=== PATIENT | female | born 1990 | race Caucasian/White ===

== ENCOUNTER 2018-07-06 16:45 | Observation (INO) ==
[2018-07-06] MEDS ORDERED: 0.9 % Sodium Chloride 1,000 ML IVC ONE (17:16)
[2018-07-06] MEDS ORDERED: Sulfamethoxazole/Trimeth DS 1 EACH TABLET PO ONE (17:18)
--- NOTE | 2018-07-06 17:30 | Emergency Department Note ---
Disposition Clinical Impression: Abscess of skin or subcutaneous tissue Qualifiers: Site of cutaneous abscess: trunk Site of cutaneous abscess of trunk: chest wall Qualified Code(s): L02.213 - Cutaneous abscess of chest wall Disposition: Admitted As Inpatient Time of Disposition: 19:37 General Adult HPI - General Chief complaint: ED Skin/Abscess/Foreign Body Stated complaint: Left lump on breast Time Seen by Provider: 07/06/18 17:00 Source: patient Limitations: no limitations Nursing Notes Reviewed: Yes Vital Signs Reviewed: Yes - History of Present Illness HPI Narrative: Male patient presenting to the respiratory a history of lump to her left breast. She noticed that there was pain for a week however it started getting red over the past 3 days. She has subjective fevers. She is mildly tachycardic while coming in. She does have a history of diabetes. She has tried at home Augmentin that she had from previous infection and her has tried to place a needle in this to express infection however this was unsuccessful. Patient is not currently breast-feeding. This is not localized with her areola. It is not currently draining. Pain Scale: 6 - Related Data Allergies Allergy/AdvReac Type Severity Reaction Status Date / Time No Known Allergies Allergy Verified 07/06/18 16:49 All systems ED: reviewed and negative except as stated. Review of Systems: As Per HPI Constitutional: Reports: chills. Denies: fever ENT ED: Denies: congestion Cardiovascular: Denies: chest pain, palpitations, syncope Respiratory: Denies: cough, dyspnea Gastrointestinal: Denies: abdominal pain, nausea, vomiting, diarrhea Integumentary: Reports: lesions (To the left breast.) Past Medical History - Past Medical History Attestation: Yes The following information was validated with the patient. Source: patient Medical history: Reports: diabetes, hyperlipidemia Psychiatric history: Reports: no psych history - Social History Smoking Status: Current every day smoker Smokeless Tobacco Status: No Alcohol use: Reports: occasionally Drug use: Reports: none Physical Exam - General Limitations: no limitations General appearance: alert, in no apparent distress - Head Head exam: atraumatic, normocephalic, normal inspection - Eye Eye exam: Present: normal appearance, PERRL, EOMI - ENT ENT exam: normal exam, normal oropharynx, mucous membranes moist - Neck Neck exam: Present: normal inspection, full ROM, trachea midline - Chest Chest inspection: Present: abscess (To the left breast. Approximately 4:00 from her areola.) - Respiratory Respiratory exam: Present: normal lung sounds bilaterally. Absent: respiratory distress, accessory muscle use - Cardiovascular Cardiovascular exam: Present: regular rate, normal rhythm, normal heart sounds - Abdominal Exam Abdominal exam: Present: soft, Non-Tender. Absent: tenderness, distention, guarding, rebound, rigidity, organomegaly, Hughes's sign, Rovsing's sign, tenderness at McBurney's Point - Extremities Exam Extremities exam: Present: normal inspection, full ROM. Absent: tenderness, pedal edema - Neurological Exam Neurological exam: Present: alert, oriented X3 - Psychiatric Psychiatric exam: Present: normal affect, normal mood - Skin Skin exam: Present: warm, dry, normal color Course Course Narrative: Female patient with a abscess to the left breast. States is been getting worse over the past 3 days. She did notice pain in this area approximately week ago. Reports subjective fevers. Has tried Augmentin at home as well as draining it by her . The antibiotic she just had extra laying around. She denies any other medical history other than diabetes. She is mentating appropriately nonfebrile while she is here. Breast is exquisitely tender. Area of erythema and palpable fluctuance. Warm to touch. Her white count is mildly elevated at 11. We did place patient on antibiotics for she is here. I discussed this patient with our on-call surgeon Dr. Bernard who states that she we will admit her to her service. We did place patient on Zosyn at her request. And get a CT of patient's chest at her request as well. We did a bedside ultrasound which showed a large abscess to the left breast. We will admit patient to the hospital this time. Of note patient has had a have cysts lanced in her right axilla region before. - Consultations Consultation #1: I spoke with Dr Bernard. She is agreeable to admit Pt to the hospital to her service. She states that she would like a chest ct and the Pt placed on zosyn. Time: 18:48 Vital Signs Temperature 98.0 F 07/06/18 16:49 Pulse Rate 96 07/06/18 16:49 Respiratory Rate 14 07/06/18 16:49 Blood Pressure 144/92 07/06/18 16:49 O2 Sat by Pulse Oximetry 99 07/06/18 16:49 Temperature 98.0 F 07/06/18 16:49 Pulse Rate 89 07/06/18 18:13 Respiratory Rate 16 07/06/18 18:13 Blood Pressure 120/95 07/06/18 18:13 O2 Sat by Pulse Oximetry 100 07/06/18 18:14 Oxygen Delivery Oxygen Delivery Room Air Procedures - Ultrasound-Other Narrative: Bedside ultrasound performed by myself of the left breast showed a large hypodense area consistent with abscess formation. This does not appear similar to other breast tissue. Medical Decision Making - Medical Records Medical records reviewed: Yes I reviewed the patient's medical records. - Lab Data Lab results reviewed: Yes I reviewed the patient's lab results. Result diagrams: 07/06/18 17:36 07/06/18 17:36 Lab Results 07/06/18 07/06/18 07/06/18 Range/Units 17:36 17:36 17:36 WBC 12.0 H (4.3-11.1) K/mcL RBC 5.00 H (3.82-4.97) M/mcL Hgb 13.7 (11.5-15.4) g/dL Hct 42.6 (35.3-44.9) % MCV 85.2 (83.0-100.0) fL MCH 27.4 L (28.0-33.3) pg MCHC 32.2 (31.6-35.5) g/dL RDW 14.1 (11.5-14.5) % Plt Count 244 (140-400) K/mcL MPV 10.6 (9.4-12.4) fL Immature Gran % 1.4 (0-4) % Seg Neutrophils % 64.3 % Lymphocytes % 25.3 % Monocytes % 5.7 % Eosinophils % 2.5 % Basophils % 0.8 % Neutrophils # 7.7 (1.6-8.9) K/mcL Lymphocytes # 3.0 (0.6-4.6) K/mcL Monocytes # 0.7 (0.0-1.3) K/mcL Eosinophils # 0.3 (0.0-0.6) K/mcL Basophils # 0.1 (0.0-0.2) K/mcL Immature Plt Fraction 5.2 (1.1-6.1) % PT 10.7 (9.4-12.1) Seconds INR 1.0 APTT 28.2 (26.0-36.0) Seconds Sodium 134 L (136-145) mEq/L Potassium 4.1 (3.5-5.1) mEq/L Chloride 105 (98-107) mEq/L Carbon Dioxide 21 L (23-29) mEq/L BUN 11 (6-20) mg/dL Creatinine 0.81 (0.60-1.20) mg/dL Est GFR ( Amer) > 60 (> 60) Est GFR (Non-Af Amer) > 60 (> 60) BUN/Creatinine Ratio 14 (6-26) Glucose 181 H (70-105) mg/dL Calculated Osmolality 282 (280-300) Lactic Acid (0.5-2.2) mmol/L Calcium 9.4 (8.6-10.3) mg/dL Phosphorus 3.3 (2.7-4.5) mg/dL Magnesium 2.1 (1.6-2.6) mg/dL Total Bilirubin 0.4 (0.3-1.0) mg/dL Direct Bilirubin 0.1 (0.0-0.2) mg/dL Indirect Bilirubin 0.3 (0.0-1.2) mg/dL AST 13 (13-39) Units/L ALT 14 (7-52) Units/L Alkaline Phosphatase 66 (34-104) Units/L Troponin I < 0.03 (< 0.04) ng/mL Serum Total Protein 7.6 (6.4-8.9) g/dL Albumin 4.2 (3.5-5.7) g/dL Globulin 3.4 (2.4-3.5) g/dL Albumin/Globulin Ratio 1.2 (1.1-2.2) Urine Color (Yellow) Urine Clarity (Clear) Urine pH (5.0-8.0) pH Units Ur Specific Brave (1.010-1.025) Urine Protein (Neg-Trace) mg/dL Urine Glucose (UA) (Normal) mg/dL Urine Ketones (Negative) mg/dL Urine Blood (Negative) Urine Nitrite (Negative) Urine Bilirubin (Negative) Urine Urobilinogen (Normal) mg/dL Ur Leukocyte Esterase (Negative) Urine Microscopic RBC (0-3) per hpf Urine Microscopic WBC (0-3) per hpf Ur Squamous Epith Cells (None-Few) per lpf Urine Bacteria (None-Few) per hpf Hyaline Casts (None-Few) per lpf Urine Yeast (None Seen) per hpf Ur Culture Indicated? (NO) 07/06/18 07/06/18 Range/Units 17:36 17:55 WBC (4.3-11.1) K/mcL RBC (3.82-4.97) M/mcL Hgb (11.5-15.4) g/dL Hct (35.3-44.9) % MCV (83.0-100.0) fL MCH (28.0-33.3) pg MCHC (31.6-35.5) g/dL RDW (11.5-14.5) % Plt Count (140-400) K/mcL MPV (9.4-12.4) fL Immature Gran % (0-4) % Seg Neutrophils % % Lymphocytes % % Monocytes % % Eosinophils % % Basophils % % Neutrophils # (1.6-8.9) K/mcL Lymphocytes # (0.6-4.6) K/mcL Monocytes # (0.0-1.3) K/mcL Eosinophils # (0.0-0.6) K/mcL Basophils # (0.0-0.2) K/mcL Immature Plt Fraction (1.1-6.1) % PT (9.4-12.1) Seconds INR APTT (26.0-36.0) Seconds Sodium (136-145) mEq/L Potassium (3.5-5.1) mEq/L Chloride (98-107) mEq/L Carbon Dioxide (23-29) mEq/L BUN (6-20) mg/dL Creatinine (0.60-1.20) mg/dL Est GFR ( Amer) (> 60) Est GFR (Non-Af Amer) (> 60) BUN/Creatinine Ratio (6-26) Glucose (70-105) mg/dL Calculated Osmolality (280-300) Lactic Acid 1.1 (0.5-2.2) mmol/L Calcium (8.6-10.3) mg/dL Phosphorus (2.7-4.5) mg/dL Magnesium (1.6-2.6) mg/dL Total Bilirubin (0.3-1.0) mg/dL Direct Bilirubin (0.0-0.2) mg/dL Indirect Bilirubin (0.0-1.2) mg/dL AST (13-39) Units/L ALT (7-52) Units/L Alkaline Phosphatase (34-104) Units/L Troponin I (< 0.04) ng/mL Serum Total Protein (6.4-8.9) g/dL Albumin (3.5-5.7) g/dL Globulin (2.4-3.5) g/dL Albumin/Globulin Ratio (1.1-2.2) Urine Color Yellow (Yellow) Urine Clarity Clear (Clear) Urine pH 5.5 (5.0-8.0) pH Units Ur Specific Brave 1.025 (1.010-1.025) Urine Protein Negative (Neg-Trace) mg/dL Urine Glucose (UA) >=1000 H (Normal) mg/dL Urine Ketones Negative (Negative) mg/dL Urine Blood Negative (Negative) Urine Nitrite Negative (Negative) Urine Bilirubin Negative (Negative) Urine Urobilinogen Normal (Normal) mg/dL Ur Leukocyte Esterase Small H (Negative) Urine Microscopic RBC 0-3 (0-3) per hpf Urine Microscopic WBC 15-30 H (0-3) per hpf Ur Squamous Epith Cells Many H (None-Few) per lpf Urine Bacteria None Seen (None-Few) per hpf Hyaline Casts None Seen (None-Few) per lpf Urine Yeast Few H (None Seen) per hpf Ur Culture Indicated? NO. A (NO) - Radiology Data Radiology results reviewed: Yes I reviewed the patient's radiology results. Chest CT 07/06/18 18:44 IMPRESSION: Thickening of the skin in the left breast inferior and lateral to the nipple. No discrete fluid collection is seen in the breast parenchyma. Ultrasound is recommended for complete assessment. The possibility of a sebaceous cyst is raised. Scattered less than 5 mm lung nodules. Given the patient's age these are benign and warrant no additional follow-up. No history of a primary malignancy was provided. D/ / 07/06/2018 19:23:03 Ronald Horne MD [facility] Interpreting Provider: Ronald Horne MD Attestation Statement - Attestation Attestation: Resident Attestation: I examined this patient and my medical decision making was reviewed with the Resident Physician. I agree with the documented findings, disposition and treatment plan as described except to the extent set forth below. We independently had [id number] contact with the patient. Patient presenting for concern for breast cellulitis and abscess. Patient tried initial drainage at home with . Patient is been trying to express fluid patient has had worsening erythema. Worsening pain. Bedside ultrasound concerning for abscess. Resident physician discussed with surgeon. I was present for bedside ultrasound. Patient admitted for further treatment. Lateral left breast with significant erythema and underlying fluctuance.
[2018-07-06 17:57] LABS: Basophils # 0.1 K/mcL (0.0-0.2); Basophils % 0.8 %; Eosinophils # 0.3 K/mcL (0.0-0.6); Eosinophils % 2.5 %; Hematocrit 42.6 % (35.3-44.9); Hemoglobin 13.7 g/dL (11.5-15.4); Immature Granulocytes % 1.4 % (0-4); Immature Platelets 5.2 % (1.1-6.1); Lymphocytes % 25.3 %; Mean Corpuscular HGB Conc 32.2 g/dL (31.6-35.5); Mean Corpuscular Hemoglobin 27.4 pg (28.0-33.3); Mean Corpuscular Volume 85.2 fL (83.0-100.0); Mean Platelet Volume 10.6 fL (9.4-12.4); Monocytes # 0.7 K/mcL (0.0-1.3); Monocytes % 5.7 %; Neutrophils # 7.7 K/mcL (1.6-8.9); Platelet Count 244 K/mcL (140-400); Red Cell Distribution Width 14.1 % (11.5-14.5); Segmented Neutrophils % 64.3 %
[2018-07-06 17:59] LABS: Prothrombin Time 10.7 Seconds (9.4-12.1)
[2018-07-06 18:01] LABS: Activated Partial Thrombo Time 28.2 Seconds (26.0-36.0)
[2018-07-06 18:04] LABS: Bilirubin,Urine Negative (Negative); Blood,Urine Negative (Negative); Clarity,Urine Clear (Clear); Color,Urine Yellow (Yellow); Glucose,Urine (UA) >=1000 mg/dL (Normal); Ketones,Urine Negative (Negative); Leukocyte Esterase,Urine Small (Negative); Nitrite,Urine Negative (Negative); PH,Urine 5.5 pH Units (5.0-8.0); Protein,Urine Negative (Neg-Trace); Specific Gravity,Urine 1.025 (1.010-1.025); Urobilinogen,Urine Normal (Normal)
[2018-07-06] MEDS ORDERED: *HR* OxyCODONE/APAP 5/325 TABLET PO ONE (18:05)
[2018-07-06 18:06] LABS: Bacteria,Urine None Seen per hpf (None-Few); Hyaline Casts,Urine None Seen per lpf (None-Few); RBC,Urine 0-3 per hpf (0-3); Squamous Epithelial Cell,Urine Many per lpf (None-Few); WBC,Urine 15-30 per hpf (0-3)
[2018-07-06 18:13] LABS: Alanine Aminotransferase 14 Units/L (7-52); Albumin 4.2 g/dL (3.5-5.7); Albumin/Globulin Ratio 1.2 (1.1-2.2); Alkaline Phosphatase 66 Units/L (34-104); Aspartate Amino Transferase 13 Units/L (13-39); BUN/Creatinine Ratio 14 (6-26); Bilirubin,Direct 0.1 mg/dL (0.0-0.2); Bilirubin,Indirect 0.3 mg/dL (0.0-1.2); Bilirubin,Total 0.4 mg/dL (0.3-1.0); Blood Urea Nitrogen 11 mg/dL (6-20); Calcium 9.4 mg/dL (8.6-10.3); Carbon Dioxide 21 mEq/L (23-29); Chloride 105 mEq/L (98-107); Globulin 3.4 g/dL (2.4-3.5); Glucose 181 mg/dL (70-105); Magnesium 2.1 mg/dL (1.6-2.6); Osmolality,Calculated 282 (280-300); Phosphorous 3.3 mg/dL (2.7-4.5); Potassium 4.1 mEq/L (3.5-5.1); Sodium 134 mEq/L (136-145); Total Protein 7.6 g/dL (6.4-8.9); Troponin I < 0.03 ng/mL (< 0.04); eGFR For Non-African Americans > 60 (> 60)
[2018-07-06 18:25] LABS: Yeast,Urine Few per hpf (None Seen)
[2018-07-06] MEDS ORDERED: Piperacillin/Tazobactam 3.375 GM in 0.9 % Sodium Chloride Mini Bag 100 ML IVPB ONE (18:45)
[2018-07-06] MEDS ORDERED: Tdap (Boostrix) Vaccine 0.5 ML SYRINGE IM ONE (20:47)
[2018-07-06] MEDS ORDERED: Ondansetron 4 MG/2 ML VIAL IVP PRN (21:25)
[2018-07-06] MEDS ORDERED: *HR* Dextrose 50 % in Water (Syg) 50 ML SYRINGE IVP PRN (21:25)
[2018-07-06] MEDS ORDERED: Dextrose 4 GM Chewable Tablets PO PRN ×2 (21:25)
[2018-07-06] MEDS ORDERED: *HR* Metoprolol 5 MG/5 ML VIAL IVP PRN (21:25)
[2018-07-06] MEDS ORDERED: Dextrose Gel 15 GM/37.5 ML TUBE PO PRN ×2 (21:25)
[2018-07-06] MEDS ORDERED: D5% in Water 1,000 ML IVC PRN (21:25)
[2018-07-06] MEDS ORDERED: *HR* Promethazine 25 MG/ML VIAL IVP PRN (21:25)
[2018-07-06] MEDS ORDERED: Naloxone 0.4 MG/ML INJ IVP PRN (21:25)
[2018-07-06] MEDS: 0.9 % Sodium Chloride 1,000 ML IVC SCH (22:57)
[2018-07-06] MEDS: Piperacillin/Tazobactam 3.375 GM in 0.9 % Sodium Chloride Mini Bag 100 ML IVPB SCH (23:59)
[2018-07-07] MEDS: Insulin LISPRO 300 UNITS/3 ML VIAL SQ SCH ×4 (00:54→18:11)
[2018-07-07] MEDS: *HR* OxyCODONE/APAP 5/325 TABLET PO PRN ×5 (05:28→23:00)
[2018-07-07 05:45] LABS: Basophils # 0.1 K/mcL (0.0-0.2); Basophils % 0.9 %; Eosinophils # 0.3 K/mcL (0.0-0.6); Eosinophils % 2.8 %; Hemoglobin 12.9 g/dL (11.5-15.4); Lymphocytes # 2.8 K/mcL (0.6-4.6); Lymphocytes % 27.1 %; Mean Corpuscular HGB Conc 32.3 g/dL (31.6-35.5); Mean Corpuscular Hemoglobin 27.9 pg (28.0-33.3); Mean Corpuscular Volume 86.6 fL (83.0-100.0); Mean Platelet Volume 10.6 fL (9.4-12.4); Monocytes # 0.7 K/mcL (0.0-1.3); Monocytes % 7.3 %; Neutrophils # 6.2 K/mcL (1.6-8.9); Platelet Count 244 K/mcL (140-400); Red Blood Count 4.62 M/mcL (3.82-4.97); Red Cell Distribution Width 14.3 % (11.5-14.5); Segmented Neutrophils % 60.9 %
[2018-07-07 07:48] LABS: BUN/Creatinine Ratio 13 (6-26); Blood Urea Nitrogen 12 mg/dL (6-20); Calcium 8.5 mg/dL (8.6-10.3); Carbon Dioxide 18 mEq/L (23-29); Chloride 113 mEq/L (98-107); Glucose 168 mg/dL (70-105); Osmolality,Calculated 286 (280-300); Potassium 4.9 mEq/L (3.5-5.1); Sodium 136 mEq/L (136-145); eGFR For Non-African Americans > 60 (> 60)
[2018-07-07 08:01] LABS: Estimated Average Glucose 200 mg/dl; Hemoglobin A1C 8.6 %
[2018-07-07] MEDS: Piperacillin/Tazobactam 3.375 GM in 0.9 % Sodium Chloride Mini Bag 100 ML IVPB SCH ×2 (08:25→18:08)
[2018-07-07] MEDS: Pantoprazole 40 MG VIAL IVP SCH (08:25)
[2018-07-07] MEDS ORDERED: Lidocaine -MPF 1% 5 ML AMPUL ID ONE (12:19)
[2018-07-07] MEDS ORDERED: Lidocaine -MPF 1% 5 ML AMPUL ONE ×2 (12:20→12:21)
[2018-07-07] MEDS: 0.9 % Sodium Chloride 1,000 ML IVC SCH (12:37)
[2018-07-07] MEDS: OXYCODONE Oral CONC 10 MG/0.5 ML ORAL.SYG SL PRN (12:38)
[2018-07-07] MEDS: Nicotine 14 MG PATCH.TD24 TD SCH (14:41)
--- NOTE | 2018-07-07 14:58 | General Surg History&Physical ---
Date of Encounter: 07/07/18 Time of Encounter: 12:00 Assessment and Plan (1) Breast abscess Current Visit: Yes Status: Acute The assessment and plan as outlined above was discussed with the patient and/or family members who expressed understanding and agreement. All questions were answered. discussed I/D with patient and consent obtained continue iv antibiotics cultures obtained prn pain control daily wound care (2) Tobacco abuse Current Visit: Yes Status: Chronic The assessment and plan as outlined above was discussed with the patient and/or family members who expressed understanding and agreement. All questions were answered. nicotine patch (3) Essential hypertension Current Visit: Yes Status: Chronic The assessment and plan as outlined above was discussed with the patient and/or family members who expressed understanding and agreement. All questions were answered. contineu home meds (4) Diabetes Current Visit: Yes Status: Chronic The assessment and plan as outlined above was discussed with the patient and/or family members who expressed understanding and agreement. All questions were answered. Qualifiers: Diabetes mellitus type: type 2 Diabetes mellitus complication status: without complication Qualified Code(s): E11.9 - Type 2 diabetes mellitus without complications (5) Hyperlipidemia Current Visit: Yes Status: Chronic The assessment and plan as outlined above was discussed with the patient and/or family members who expressed understanding and agreement. All questions were answered. continue home medication Qualifiers: Hyperlipidemia type: unspecified Qualified Code(s): E78.5 - Hyperlipidemia, unspecified History of Present Illness Chief complaint: left breast pain HPI: Ms. Garcia is a 27 year old female who a week ago developed a localized skin infection that her boyfriend/ popped with a needle (diabetic testing [place]). The following day the area became red and tender around the site. This progressed to increasing redness and pain until the patient presented to the ED due to this. No fevers or chills. No drainage from the breast. Bedside US by ED showed potential abscess. CT chest showed no obvious abscess. wbc elevated at 12.0 patient diabetic, obese Past Med Surg Social Fam HX - Past Medical History Source: patient Medical history: diabetes, hyperlipidemia, hypertension, other (morbid obesity) Psychiatric history: no psych history - Past Surgical History Additional surgical history: D& C - Social History Smoking Status: Current every day smoker Smokeless Tobacco Status: No Alcohol use: occasionally Drug use: none Occupational status: employed Current living situation: Home - Independent Medications and Allergies Lisinopril [Zestril] 10 mg PO DAILY 07/06/18 [History] Simvastatin [Zocor] 5 mg PO HS 07/06/18 [History] metFORMIN [Glucophage] 1,000 mg PO BIDWM 07/06/18 [History] Allergy/AdvReac Type Severity Reaction Status Date / Time No Known Allergies Allergy Verified 07/06/18 16:49 Review of Systems All systems PM: reviewed and no additional remarkable complaints except as stated All systems PM: The remainder of the systems were reviewed and are negative General Surgery Exam Initial Vital Signs Temp Pulse Resp BP Pulse Ox 98.0 F 96 14 144/92 99 07/06/18 16:49 07/06/18 16:49 07/06/18 16:49 07/06/18 16:49 07/06/18 16:49 - General physical appearance well developed, well nourished, no distress, obese - Eyes PERRL, normal ocular movement - ENT normal mucosa, normocephalic - Respiratory normal expansion, clear to auscultation - Cardiovascular Cardiovascular exam: Present: RRR - Integumentary Integumentary general surgery: Present: warm and dry - Neurologic Present: CN 2-12 grossly intact - Musculoskeletal Present: normal gait, normal posture - Psychiatric Psychiatric general surgery: Present: A&Ox3, speech is normal - Additional Findings left breast lower outer quadrant cellulitis and breast abscess with surrounding induration and erythema, tender, no drainage Results - Labs 07/07/18 05:10 07/07/18 07:17 Abnormal lab results MCH 27.9 pg (28.0-33.3) L 07/07/18 05:10 Chloride 113 mEq/L (98-107) H 07/07/18 07:17 Carbon Dioxide 18 mEq/L (23-29) L 07/07/18 07:17 Glucose 168 mg/dL (70-105) H 07/07/18 07:17 POC Glucose 246 mg/dL (70-99) H 07/07/18 00:52 Hemoglobin A1c 8.6 % (-5.6) H 07/06/18 19:00 Calcium 8.5 mg/dL (8.6-10.3) L 07/07/18 07:17 Urine Glucose (UA) >=1000 mg/dL (Normal) H 07/06/18 17:55 Ur Leukocyte Esterase Small (Negative) H 07/06/18 17:55 Urine Microscopic WBC 15-30 per hpf (0-3) H 07/06/18 17:55 Ur Squamous Epith Cells Many per lpf (None-Few) H 07/06/18 17:55 Urine Yeast Few per hpf (None Seen) H 07/06/18 17:55 Ur Culture Indicated? NO. (NO) A 07/06/18 17:55 Diabetes panel 07/06/18 07/06/18 07/07/18 Range/Units 17:36 19:00 07:17 Sodium 134 L 136 (136-145) mEq/L Potassium 4.1 4.9 (3.5-5.1) mEq/L Chloride 105 113 H (98-107) mEq/L Carbon Dioxide 21 L 18 L (23-29) mEq/L BUN 11 12 (6-20) mg/dL Creatinine 0.81 0.91 (0.60-1.20) mg/dL Glucose 181 H 168 H (70-105) mg/dL Hemoglobin A1c 8.6 H ( - 5.6) % Calcium 9.4 8.5 L (8.6-10.3) mg/dL AST 13 (13-39) Units/L ALT 14 (7-52) Units/L Alkaline Phosphatase 66 (34-104) Units/L Albumin 4.2 (3.5-5.7) g/dL Calcium panel 07/06/18 07/07/18 Range/Units 17:36 07:17 Calcium 9.4 8.5 L (8.6-10.3) mg/dL Phosphorus 3.3 (2.7-4.5) mg/dL Albumin 4.2 (3.5-5.7) g/dL Pituitary panel 07/06/18 07/07/18 Range/Units 17:36 07:17 Sodium 134 L 136 (136-145) mEq/L Potassium 4.1 4.9 (3.5-5.1) mEq/L Chloride 105 113 H (98-107) mEq/L Carbon Dioxide 21 L 18 L (23-29) mEq/L BUN 11 12 (6-20) mg/dL Creatinine 0.81 0.91 (0.60-1.20) mg/dL Glucose 181 H 168 H (70-105) mg/dL Calcium 9.4 8.5 L (8.6-10.3) mg/dL Adrenal panel 07/06/18 07/07/18 Range/Units 17:36 07:17 Sodium 134 L 136 (136-145) mEq/L Potassium 4.1 4.9 (3.5-5.1) mEq/L Chloride 105 113 H (98-107) mEq/L Carbon Dioxide 21 L 18 L (23-29) mEq/L BUN 11 12 (6-20) mg/dL Creatinine 0.81 0.91 (0.60-1.20) mg/dL Glucose 181 H 168 H (70-105) mg/dL Calcium 9.4 8.5 L (8.6-10.3) mg/dL Total Bilirubin 0.4 (0.3-1.0) mg/dL AST 13 (13-39) Units/L ALT 14 (7-52) Units/L Alkaline Phosphatase 66 (34-104) Units/L Albumin 4.2 (3.5-5.7) g/dL All other labs normal. - Imaging CT scan - chest: report reviewed, image reviewed Procedures: General Surgery - Abscess I/D Consent obtained: written consent Site: other (left breast) Side (if applicable): left Sedation/analgesia: other (oxycodone sl) Anesthetic used: lidocaine 1% Technique: incised with #11 blade Amount of fluid: 5 (pus) Irrigation: Yes (lidocaine) Packing used: .25 inch plain Packing size: 1/4" Complications: none Additional comments: consent obtained area of left breast abscess prepped with betadine, time out performed 8 cc 1% lidocaine injected subcutaneously around abscess abscess I/D with 15 blade in elliptical fashion, purulent drainage resulted with aerobic/anaerobic cultures obtained wound irrigated with lidocaine, wound packed with 1/4" plain packing ,covered with 4x4 gauze and secured with medipore tape she tolerated procedure well - VTE Reasons for not Prescribing Prophylaxis: Treatment not Indicated - Low risk for VTE
--- NOTE | 2018-07-07 15:12 | Discharge Summary ---
<Dorothea Grace - Last Filed: 07/08/18 10:39> Orders not resulted at time of discharge: Pending orders 07/06/18 17:36 Culture,Blood [BC] Stat 07/07/18 13:10 Culture,Anaerobic [RM] Routine Culture,Wound [RM] Routine 07/08/18 08:50 Culture,Urine [RM] Stat Date of Encounter: 07/08/18 General Surgery Exam Initial Vital Signs Temp Pulse Resp BP Pulse Ox 98.0 F 96 14 144/92 99 07/06/18 16:49 07/06/18 16:49 07/06/18 16:49 07/06/18 16:49 07/06/18 16:49 - Hospital Course Hospital course: Ms. Garcia is a 27 year old female - Time Spent with Patient Total time spent providing and/or coordinating discharge services: - Discharge Medications Prescriptions: OxyCODONE/APAP 5/325 [Percocet 5/325 MG] 1 each PO Q6HR PRN 6 Days #22 tablet PRN Reason: Pain Docusate [Colace] 100 mg PO BID #30 capsule Sulfamethoxazole/Trimeth DS [Bactrim DS] 1 each PO BID 10 Days #20 tablet Home Medications: RX: Lisinopril [Zestril] 10 mg PO DAILY 07/06/18 [History] RX: Simvastatin [Zocor] 5 mg PO HS 07/06/18 [History] RX: metFORMIN [Glucophage] 1,000 mg PO BIDWM 07/06/18 [History] Docusate [Colace] 100 mg PO BID #30 capsule 07/07/18 [Rx] OxyCODONE/APAP 5/325 [Percocet 5/325 MG] 1 each PO Q6HR PRN 6 Days #22 tablet 07/07/18 [Rx] Sulfamethoxazole/Trimeth DS [Bactrim DS] 1 each PO BID 10 Days #20 tablet 07/07/18 [Rx] Allergies/Adverse Reactions: Allergy/AdvReac Type Severity Reaction Status Date / Time No Known Allergies Allergy Verified 07/06/18 16:49 Date of admission: 07/06/18 20:38 Primary care physician: Jordan Stauffer Labs on day of discharge: Labs from last 24 hours 07/08/18 07/08/18 07/07/18 07:58 04:47 20:25 WBC 8.8 RBC 4.78 Hgb 13.2 Hct 40.5 MCV 84.7 MCH 27.6 L MCHC 32.6 RDW 13.9 Plt Count 188 MPV 11.4 Immature Gran % 1.5 Seg Neutrophils % 61.4 Lymphocytes % 25.5 Monocytes % 7.7 Eosinophils % 2.9 Basophils % 1.0 Neutrophils # 5.4 Lymphocytes # 2.2 Monocytes # 0.7 Eosinophils # 0.3 Basophils # 0.1 Platelet Estimate Slight Decrease L POC Glucose 156 H 170 H 07/07/18 05:14 WBC RBC Hgb Hct MCV MCH MCHC RDW Plt Count MPV Immature Gran % Seg Neutrophils % Lymphocytes % Monocytes % Eosinophils % Basophils % Neutrophils # Lymphocytes # Monocytes # Eosinophils # Basophils # Platelet Estimate POC Glucose 151 H Preliminary micro results at discharge 07/07/18 13:10 Wound Culture - Preliminary Abscess Culture is incubating. 07/07/18 13:10 Anaerobic Culture - Preliminary Abscess Culture is incubating. 07/06/18 17:36 Blood Culture - Preliminary Peripheral Venipuncture Culture is incubating and being continuously mon itored for growth. Final report to follow. 07/06/18 17:34 Blood Culture - Preliminary Peripheral Venipuncture Culture is incubating and being continuously monitored for growth. Final report to follow. - Impressions ITS Impressions Chest CT 07/06/18 18:44 IMPRESSION: Thickening of the skin in the left breast inferior and lateral to the nipple. No discrete fluid collection is seen in the breast parenchyma. Ultrasound is recommended for complete assessment. The possibility of a sebaceous cyst is raised. Scattered less than 5 mm lung nodules. Given the patient's age these are benign and warrant no additional follow-up. No history of a primary malignancy was provided. D/ : / 07/06/2018 19:23:03 Ronald Horne MD / [email or web address] Interpreting Provider: Ronald Horne MD - Patient Status Disposition: Home, Self-Care Condition: Fair - Discharge Instructions Instructions: Breast Abscess Drainage (DC), Acute Wound Care (DC), Incision and Drainage (DC) Follow Up With: Dorothea Grace [employer] [Advanced Practice Nurse] - 07/23/18 3:15 pm (two weeks for wound check) Jordan Stauffer, [Primary Care Provider] - Additional Instructions: remove dressing and packing, ok to shower, pat area dry pack with 1/4" plain packing, cover with 4x4 gauze, secure with tape, change daily <Lissette Bernard - Last Filed: 07/08/18 16:20> Orders not resulted at time of discharge: Pending orders 07/06/18 17:36 Culture,Blood [BC] Stat 07/07/18 13:10 Culture,Anaerobic [RM] Routine Culture,Wound [RM] Routine 07/08/18 04:00 CBC [Complete Blood Count] [HEME] AM 0400 Date of Encounter: 07/08/18 Time of Encounter: 15:12 - Discharge Diagnosis (1) Breast abscess Priority: Primary Status: Acute (2) Tobacco abuse Priority: Secondary Status: Chronic (3) Essential hypertension Priority: Secondary Status: Chronic (4) Diabetes Priority: Secondary Status: Chronic Qualifiers: Diabetes mellitus type: type 2 Diabetes mellitus complication status: without complication Qualified Code(s): E11.9 - Type 2 diabetes mellitus without complications (5) Hyperlipidemia Priority: Secondary Status: Chronic Qualifiers: Hyperlipidemia type: unspecified Qualified Code(s): E78.5 - Hyperlipidemia, unspecified General Surgery Exam Initial Vital Signs Temp Pulse Resp BP Pulse Ox 98.0 F 96 14 144/92 99 07/06/18 16:49 07/06/18 16:49 07/06/18 16:49 07/06/18 16:49 07/06/18 16:49 - General physical appearance well developed, well nourished, no distress, obese - Eyes PERRL, normal ocular movement - Neck trachea midline - Respiratory normal expansion, clear to auscultation - Cardiovascular Cardiovascular exam: Present: RRR - Incision Incision: Present: draining, clean and dry, open - Integumentary Integumentary general surgery: Present: warm and dry - Neurologic Present: CN 2-12 grossly intact - Musculoskeletal Present: normal posture - Psychiatric Psychiatric general surgery: Present: A&Ox3, speech is normal - Hospital Course Hospital course: Ms. Garcia is a 27 year old female admitted wiht left breast abscess and cellulitis. She underwent a bedside I/D on 07.07.18. She was treated with iv antibiotics. Pain controlled with po medication. She was discharged home in stable condition. - Time Spent with Patient Total time spent providing and/or coordinating discharge services: Date of admission: 07/06/18 20:38 Primary care physician: Jordan Stauffer Discharging clinician: Lissette Bernard Anticipated date of discharge: 07/08/18 Labs on day of discharge: Labs from last 24 hours 07/07/18 07/07/18 07/07/18 07:17 05:10 00:52 WBC 10.2 RBC 4.62 Hgb 12.9 Hct 40.0 MCV 86.6 MCH 27.9 L MCHC 32.3 RDW 14.3 Plt Count 244 MPV 10.6 Immature Gran % 1.0 Seg Neutrophils % 60.9 Lymphocytes % 27.1 Monocytes % 7.3 Eosinophils % 2.8 Basophils % 0.9 Neutrophils # 6.2 Lymphocytes # 2.8 Monocytes # 0.7 Eosinophils # 0.3 Basophils # 0.1 Immature Plt Fraction PT INR APTT Sodium 136 Potassium 4.9 Chloride 113 H Carbon Dioxide 18 L BUN 12 Creatinine 0.91 Est GFR ( Amer) > 60 Est GFR (Non-Af Amer) > 60 BUN/Creatinine Ratio 13 Glucose 168 H POC Glucose 246 H Est Mean Plasma Glucose Hemoglobin A1c Calculated Osmolality 286 Lactic Acid Calcium 8.5 L Phosphorus Magnesium Total Bilirubin Direct Bilirubin Indirect Bilirubin AST ALT Alkaline Phosphatase Troponin I Serum Total Protein Albumin Globulin Albumin/Globulin Ratio Urine Color Urine Clarity Urine pH Ur Specific [place] Urine Protein Urine Glucose (UA) Urine Ketones Urine Blood Urine Nitrite Urine Bilirubin Urine Urobilinogen Ur Leukocyte Esterase Urine Microscopic RBC Urine Microscopic WBC Ur Squamous Epith Cells Urine Bacteria Hyaline Casts Urine Yeast Ur Culture Indicated? 07/06/18 07/06/18 07/06/18 19:00 17:55 17:36 WBC RBC Hgb Hct MCV MCH MCHC RDW Plt Count MPV Immature Gran % Seg Neutrophils % Lymphocytes % Monocytes % Eosinophils % Basophils % Neutrophils # Lymphocytes # Monocytes # Eosinophils # Basophils # Immature Plt Fraction PT INR APTT Sodium Potassium Chloride Carbon Dioxide BUN Creatinine Est GFR ( Amer) Est GFR (Non-Af Amer) BUN/Creatinine Ratio Glucose POC Glucose Est Mean Plasma Glucose 200 Hemoglobin A1c 8.6 H Calculated Osmolality Lactic Acid 1.1 Calcium Phosphorus Magnesium Total Bilirubin Direct Bilirubin Indirect Bilirubin AST ALT Alkaline Phosphatase Troponin I Serum Total Protein Albumin Globulin Albumin/Globulin Ratio Urine Color Yellow Urine Clarity Clear Urine pH 5.5 Ur Specific [place] 1.025 Urine Protein Negative Urine Glucose (UA) >=1000 H Urine Ketones Negative Urine Blood Negative Urine Nitrite Negative Urine Bilirubin Negative Urine Urobilinogen Normal Ur Leukocyte Esterase Small H Urine Microscopic RBC 0-3 Urine Microscopic WBC 15-30 H Ur Squamous Epith Cells Many H Urine Bacteria None Seen Hyaline Casts None Seen Urine Yeast Few H Ur Culture Indicated? NO. A 07/06/18 07/06/18 07/06/18 17:36 17:36 17:36 WBC 12.0 H RBC 5.00 H Hgb 13.7 Hct 42.6 MCV 85.2 MCH 27.4 L MCHC 32.2 RDW 14.1 Plt Count 244 MPV 10.6 Immature Gran % 1.4 Seg Neutrophils % 64.3 Lymphocytes % 25.3 Monocytes % 5.7 Eosinophils % 2.5 Basophils % 0.8 Neutrophils # 7.7 Lymphocytes # 3.0 Monocytes # 0.7 Eosinophils # 0.3 Basophils # 0.1 Immature Plt Fraction 5.2 PT 10.7 INR 1.0 APTT 28.2 Sodium 134 L Potassium 4.1 Chloride 105 Carbon Dioxide 21 L BUN 11 Creatinine 0.81 Est GFR ( Amer) > 60 Est GFR (Non-Af Amer) > 60 BUN/Creatinine Ratio 14 Glucose 181 H POC Glucose Est Mean Plasma Glucose Hemoglobin A1c Calculated Osmolality 282 Lactic Acid Calcium 9.4 Phosphorus 3.3 Magnesium 2.1 Total Bilirubin 0.4 Direct Bilirubin 0.1 Indirect Bilirubin 0.3 AST 13 ALT 14 Alkaline Phosphatase 66 Troponin I < 0.03 Serum Total Protein 7.6 Albumin 4.2 Globulin 3.4 Albumin/Globulin Ratio 1.2 Urine Color Urine Clarity Urine pH Ur Specific [place] Urine Protein Urine Glucose (UA) Urine Ketones Urine Blood Urine Nitrite Urine Bilirubin Urine Urobilinogen Ur Leukocyte Esterase Urine Microscopic RBC Urine Microscopic WBC Ur Squamous Epith Cells Urine Bacteria Hyaline Casts Urine Yeast Ur Culture Indicated? Preliminary micro results at discharge 07/07/18 13:10 Wound Culture - Preliminary Abscess Culture is incubating. 07/07/18 13:10 Anaerobic Culture - Preliminary Abscess Culture is incubating. 07/06/18 17:36 Blood Culture - Preliminary Peripheral Venipuncture Culture is incubating and being continuously monitored for growth. Final report to follow. 07/06/18 17:34 Blood Culture - Preliminary Peripheral Venipuncture Culture is incubating and being continuously monitored for growth. Final report to follow. - Impressions ITS Impressions Chest CT 07/06/18 18:44 IMPRESSION: Thickening of the skin in the left breast inferior and lateral to the nipple. No discrete fluid collection is seen in the breast parenchyma. Ultrasound is recommended for complete assessment. The possibility of a sebaceous cyst is raised. Scattered less than 5 mm lung nodules. Given the patient's age these are benign and warrant no additional follow-up. No history of a primary malignancy was provided. D/ / 07/06/2018 19:23:03 Ronald Horne MD / [email or web address] Interpreting Provider: Ronald Horne MD - Patient Status Overall status at discharge: patient is progressing back to baseline - Diet and Activity Activity: increase activity as tolerated - Attending Attestation I have personally performed a face to face evaluation on this patient. I have reviewed and agree with the care plan. History and Exam by me shows:
[2018-07-07] MEDS: *HR* Metformin 500 MG TABLET PO SCH (18:08)
[2018-07-08] MEDS: Piperacillin/Tazobactam 3.375 GM in 0.9 % Sodium Chloride Mini Bag 100 ML IVPB SCH ×2 (00:23→08:01)
[2018-07-08] MEDS: Insulin LISPRO 300 UNITS/3 ML VIAL SQ SCH ×2 (00:28→05:22)
[2018-07-08 05:12] LABS: Basophils # 0.1 K/mcL (0.0-0.2); Eosinophils # 0.3 K/mcL (0.0-0.6); Eosinophils % 2.9 %; Hematocrit 40.5 % (35.3-44.9); Hemoglobin 13.2 g/dL (11.5-15.4); Immature Granulocytes % 1.5 % (0-4); Lymphocytes % 25.5 %; Mean Corpuscular HGB Conc 32.6 g/dL (31.6-35.5); Mean Corpuscular Hemoglobin 27.6 pg (28.0-33.3); Mean Corpuscular Volume 84.7 fL (83.0-100.0); Mean Platelet Volume 11.4 fL (9.4-12.4); Monocytes # 0.7 K/mcL (0.0-1.3); Monocytes % 7.7 %; Neutrophils # 5.4 K/mcL (1.6-8.9); Platelet Count 188 K/mcL (140-400); Red Blood Count 4.78 M/mcL (3.82-4.97); Red Cell Distribution Width 13.9 % (11.5-14.5); Segmented Neutrophils % 61.4 %
[2018-07-08 05:42] LABS: Lymphocytes # 2.2 K/mcL (0.6-4.6)
[2018-07-08 05:43] LABS: Platelet Estimate Slight Decrease (Normal)
[2018-07-08] MEDS: *HR* Metformin 500 MG TABLET PO SCH (08:01)
[2018-07-08] MEDS: Pantoprazole 40 MG VIAL IVP SCH (08:01)
[2018-07-08] MEDS: *HR* OxyCODONE/APAP 5/325 TABLET PO PRN (08:01)
[2018-07-08] MEDS: Nicotine 14 MG PATCH.TD24 TD SCH (08:02)
[2018-07-08] MEDS ORDERED: Lidocaine -MPF 2% 10 ML AMPUL INFILT STA (08:50)
[2018-07-08] MEDS ORDERED: Lidocaine -MPF 2% 5 ML VIAL INFILT STA (09:03)
[2018-07-08 09:45] VITALS: BP 115/78
--- NOTE | 2018-07-08 10:39 | Event Note ---
Date of Encounter: 07/08/18 Time of Encounter: 10:37 Abscess to right axilla noted. Bedside incision and drainage performed. See procedure note. Patient is instructed to leave packing in place for 24 hours, may remove packing tomorrow and no need to repack. Date of procedure: 07/08/18 Procedure: ABSCESS INCISION AND DRAINAGE NOTE INDICATION: Abscess manifested as a tender, swollen fluctuant mass in the superficial subcutaneous tissue. INFORMED CONSENT: The risks and benefits of the procedure including incomplete drainage, scarring, infection and bleeding was explained and the patient verbalized their understanding and wished to proceed with the procedure. PROCEDURE: The area of greatest fluctuance was identified, prepped, and draped in a sterile fashion. Local anesthetic (5 MLs of 2% lidocaine) was introduced subcutaneously over the area of greatest fluctuance. A linear incision was then made over the area of greatest fluctuance, with immediate return of a miniscule amount of purulent material. The wound was explored with a hemostat to break up loculations and irrigated with 40MLs saline solution. Once the wound was explored, cleaned, and irrigated, 1/4 inch plain gauze packing was placed loosely in the wound. A dressing was then applied. FINDINGS: Purulent drainage. EBL: <5 mL COMPLICATIONS: None. Signature: Dorothea Grace APRN, STAFF NURSE ICU RESOURCE TEAM-C
[2018-07-08] MEDS: OXYCODONE Oral CONC 10 MG/0.5 ML ORAL.SYG SL PRN (10:45)
== END 2018-07-08 13:53 | disposition home or self-care (01) ==
LOC: 3ANU 16:45 → EMEROOARM 16:45 → 3ANU 21:08
PROVIDERS: ADMIT Surgery; ATTEND Surgery